=== PATIENT | male | born 1990 | race Caucasian/White ===

== ENCOUNTER 2019-07-23 10:26 | Emergency (ER) | payer MEDICAID ==
[~2019-07-23] VITALS: Ht 167.6 cm; Wt 91.2 kg
[2019-07-23 10:32] VITALS: BP 137/98
--- NOTE | 2019-07-23 10:38 | NUR ---
INFLUENZA AND STREP SWABS COLLECTED
[2019-07-23] MEDS ORDERED: IPRATROPIUM 0.02% 0.5 MG/2.5 ML NEBU INH ONE (12:20)
[2019-07-23] MEDS ORDERED: predniSONE 20 MG TAB PO ONE (12:20)
[2019-07-23] MEDS ORDERED: ALBUTEROL 0.083% 2.5 MG/3 ML NEBU INH ONE (12:20)
--- NOTE | 2019-07-23 12:53 | NUR ---
PT BIB SELF WITH C/O HACKING COUGH, SOB, NASAL/CHEST CONGESTION, THROAT PAIN, HEADACHE X 2 WKS. ADDS HE BLEW HIS NOSE AND FELT A POP FROM HIS EARS AND BECAME DIZZY, HAS BODYACHES, F/C. STATES HAVING INTERMITTENT FEVER . DIFFICULTY IN BREATHING AT NIGHT DUE TO CONGESTION. RECEIVED BREATHING TREATMENT AND ADMINISTERED PREDNISONE. LUNGS SOUNDS CLEAR . PT SEEN BY ER MD. WILL CONTINUE TO MOITOR PT. HX--DENIES RX---NONE
[2019-07-23 13:18] VITALS: BP 145/90
--- NOTE | 2019-07-23 13:18 | NUR ---
Patient discharged with v/s stable. Written and verbal after care instructions given and explained. Patient alert, oriented and verbalized understanding of instructions. Ambulatory with steady gait. All questions addressed prior to discharge. ID band removed. Patient advised to follow up with PMD. Rx of CLARITIN, ALBUTEROL, AEROCHAMBER, PREDNISONE given. Patient educated on indication of medication including possible reaction and side effects. Opportunity to ask questions provided and answered.
== END 2019-07-23 13:18 | disposition home or self-care (01) ==
LOC: MED 10:26
DX: B34.9 Viral infection, unspecified (principal); R03.0 Elevated blood-pressure reading, without diagnosis of hypertension; R51 Headache; Z88.0 Allergy status to penicillin
CPT/HCPCS: 71045; 87081; 87804; 94640; 99284; J7512; J7613; J7644

== ENCOUNTER 2021-04-22 09:24 | Emergency (ER) | payer SELFPAY ==
[~2021-04-22] VITALS: Ht 165.1 cm; Wt 90.7 kg
[2021-04-22 09:43] VITALS: BP 138/104
[2021-04-22] MEDS ORDERED: DICYCLOMINE HCL LIQUID 20 MG, ALUMINUM HYD/MAG/SIMETHICONE 30 ML, LIDOCAINE VISCOUS 2% ... PO ONE ×3 (11:10)
[2021-04-22] MEDS ORDERED: ONDANSETRON 4 MG ODT PO ONE (11:10)
[2021-04-22] MEDS ORDERED: DICYCLOMINE HCL LIQUID 10 MG/5 ML UDC ONE (11:15)
[2021-04-22] MEDS ORDERED: ALUMINUM HYD/MAG/SIMETHICONE 30 ML UDC ONE (11:15)
[2021-04-22] MEDS ORDERED: LIDOCAINE VISCOUS 2% 20 ML UDC ONE (11:15)
--- NOTE | 2021-04-22 11:56 | NUR ---
31 Y/O M BIB SELF FROM, C/O ABD PAIN, N&V, AND RODRIGUEZ. PT STATES HE WAS WITH HIS FAMILY AND ATE SEAFOOD, TWO OTHER PEOPLE WHO ATE THE SAME FOOD ARE SICK WITH THE SAME SYMPTOMS. PT STATES HE MIGHT HAVE HAD BAD SEAFOOD. DENIES DIARRHEA AND CONSTIPATION. SKIN IS PINK/WARM/DRY; AAOX4 WITH EVEN AND STEADY GAIT; LUNGS CLEAR BL; HR EVEN AND REGULAR; PT DENIES ANY FEVER, CP, SOB, OR COUGH AT THIS TIME; PATIENT STATES PAIN OF 10/10 AT THIS TIME; VSS; PATIENT POSITIONED FOR COMFORT; HOB ELEVATED; BEDRAILS UP X2; BED DOWN. ER MD MADE AWARE OF PT STATUS. PMH: HTN ALLERGY: PENICILLIN (HIVES)
[2021-04-22] MEDS ORDERED: ONDA-24 SL (12:53)
[2021-04-22] MEDS ORDERED: BEN10 PO (12:53)
--- NOTE | 2021-04-22 13:06 | NUR ---
Patient discharged with v/s stable. Written and verbal after care instructions given and explained. Patient alert, oriented and verbalized understanding of instructions. Ambulatory with steady gait. All questions addressed prior to discharge. ID band removed. Patient advised to follow up with PMD. Rx of ONDANSETRON, DICYCLOMINE HYDROCHLORIDE given. Patient educated on indication of medication including possible reaction and side effects. Opportunity to ask questions provided and answered.
[2021-04-22 13:07] VITALS: BP 138/104
== END 2021-04-22 13:01 | disposition home or self-care (01) ==
LOC: MED 09:24
DX: A09 Infectious gastroenteritis and colitis, unspecified (principal); J45.909 Unspecified asthma, uncomplicated; Z88.0 Allergy status to penicillin
CPT/HCPCS: 81002; 99283; Q0162

== ENCOUNTER 2022-03-09 16:53 | Emergency (ER) | payer SELFPAY ==
[~2022-03-09] VITALS: Ht 177.8 cm; Wt 134.7 kg
[~2022-03-09 16:53] MED LIST: BEN10 PO; ONDA-188 SL
[2022-03-09 16:58] VITALS: BP 157/110
--- NOTE | 2022-03-09 17:45 | NUR ---
PT AMBULATED TO BED
--- NOTE | 2022-03-09 17:52 | NUR ---
31 Y/O MALE C/O DIZZINESS X4DAYS WITH HEADACHE 06/16. DENIES N/V. DENIES FEVER/CHILLS. PT STATE HE USED TO TAKE MEDICATION FOR HIGH BP AND STOPPED. HE FEELS THIS IS CAUSING THE HEADACHE. HE STATES HE THINKS ITS TIME TO GET BACK ON HIGH BP MEDICATION. STATES THE HEADACHE IS CONSTANT AND TRIED TO WAIT IT OUT BUT COULD NOT ANYMORE. PT STATES NOPAIN ANYWHERE ELSE. PT RESTING IN BED. DENIES PMH ALLERGIES: PCN
--- NOTE | 2022-03-09 18:35 | NUR ---
DR. NEUMANN BEDSIDE EVALUATING PT
--- NOTE | 2022-03-09 18:51 | NUR ---
LAB AT PATIENT BEDSIDE
[2022-03-09 19:01] LABS: BASOPHILS % (AUTO) 0.7 % (0.0-2.0); EOSINOPHILS # (AUTO) 0.4 K/uL (0-0.4); EOSINOPHILS % (AUTO) 5.4 % (0.0-4.0); HEMATOCRIT 49.5 % (36-52); LYMPHOCYTES # (AUTO) 2.1 K/uL (2.0-11.5); LYMPHOCYTES % (AUTO) 31.2 % (20.5-51.1); MEAN CORPUSCULAR HEMOGLOBIN 30 pg (27-31); MEAN CORPUSCULAR HGB CONC 34 g/dL (33-37); MEAN CORPUSCULAR VOLUME 87.3 fL (80-94); MONOCYTES # (AUTO) 0.6 K/uL (0.8-1.0); MONOCYTES % (AUTO) 8.7 % (1.7-9.3); NEUTROPHILS # (AUTO) 3.7 K/uL (1.8-7.7); PLATELET COUNT (AUTO) 293 K/uL (140-450); RED BLOOD CELL COUNT(AUTO) 5.67 MIL/uL (4.20-6.10); RED CELL DISTRIBUTION WIDTH 13.8 % (11.6-13.7); WHITE BLOOD COUNT (AUTO) 6.8 K/uL (4.8-10.8)
--- NOTE | 2022-03-09 19:19 | NUR ---
REPOST GIVEN TO RAFAELA
[2022-03-09 19:24] LABS: ALBUMIN 3.9 g/dL (3.4-5.0); ANION GAP 9.8 (8-16); ASPARTATE AMINOTRANSFERASE 84 U/L (15-37); CARBON DIOXIDE 31.4 mmol/L (21-32); CHLORIDE 101 mmol/L (98-107); CREATININE 1.1 mg/dL (0.6-1.3); GFR ARICAN-AMERICAN 100 mL/min (>90); GLUCOSE 95 mg/dL (74-106); MAGNESIUM 2.3 mg/dL (1.8-2.4); POTASSIUM 4.2 mmol/L (3.5-5.1); SODIUM SERUM 138 mmol/L (136-145); TOTAL BILIRUBIN 0.2 mg/dL (0.0-1.0); UREA NITROGEN, BLOOD 10 mg/dL (7-18)
[2022-03-09 20:34] VITALS: BP 145/106
--- NOTE | 2022-03-09 20:36 | NUR ---
Patient discharged with v/s stable. Written and verbal after care instructions given and explained. Patient verbalized understanding. Ambulatory with steady gait. All questions addressed prior to discharge. Advised to follow up with PMD.
== END 2022-03-09 20:36 | disposition home or self-care (01) ==
LOC: MED 16:53
DX: F41.9 Anxiety disorder, unspecified (principal); R42 Dizziness and giddiness; R51.9 Headache, unspecified; F43.9 Reaction to severe stress, unspecified
CPT/HCPCS: 36415; 80053; 81002; 81025; 83735; 84484; 85025; 93005; 99284